=== PATIENT | female | born 1965 | race Two or more races ===

== ENCOUNTER → 2024-08-15 | Outpatient (CLI) | payer MEDICAID, SELFPAY ==
--- NOTE | 2024-08-15 09:45 | XR_ITS ---
Examination: Breast ultrasound, unilateral, left complete Date and time of exam: August 15, 2024 0958 hours INDICATIONS: Intermittent left breast pain one year, family history, mother ovarian cancer Mammogram 05/23/2024 12 mm focal asymmetry outer left breast CC view 7.5 cm from the nipple Technique: Real-time shine scale ultrasonographic imaging performed left breast including all 4 quadrants as well as nipple retroareolar and axillary region. Findings: 3:00 oval mass circumscribed 5 by 4 x 4 millimeter IMPRESSION: BI-RADS Category 3: Probably benign findings Recommend 1 additional 6 month left breast sonogram follow-up to document stability of 3:00 nodule described above
--- NOTE | 2024-08-15 10:30 | XR_ITS ---
Examination: Diagnostic digital mammography, unilateral, left Computer aided detection 3-D breast Tomosynthesis, unilateral Date and time of exam: August 15, 2024 1016 hours INDICATIONS: Mammogram May 23, 2024 12 mm focal asymmetry outer left breast CC view, 7.5 cm from the nipple Technique: Nonmagnified MLO, CC views of the left breast have been obtained, reconstructed from 3-D Tomosynthesis images. R2 computer aided detection program utilized for evaluation of suspicious masses and/or abnormal calcifications. 3-D Tomosynthesis images obtained. Findings: Scattered areas of fibroglandular density Breast biopsy marker upper outer left breast No suspicious masses noted on this study Impression: BI-RADS category 2: Benign findings Return to yearly follow-up mammography
== END | disposition home or self-care (01) ==
LOC: CDIM 09:30
PROVIDERS: PCP Nurse Practitioner Family; Referring Provider Nurse Practitioner Family; Visit Provider Nurse Practitioner Family
DX: R92.322 Mammographic fibroglandular density, left breast (principal); N63.25 Unspecified lump in the left breast, overlapping quadrants
CPT/HCPCS: 76641; 77061; 77065; G0279

== ENCOUNTER → 2024-11-22 | Outpatient (CLI) | payer MEDICAID, SELFPAY ==
--- NOTE | 2024-11-22 13:30 | XR_ITS ---
Examination: Breast ultrasound, unilateral, left complete Date and time of exam: November 22, 2024 1331 hrs. Indications: Left breast sonogram August 15, 2024. 3:00 nodule 4 mm Technique: Real-time shine scale ultrasonographic imaging performed left breast including all 4 quadrants as well as nipple retroareolar and axillary region. Findings: 3:00 oval mass circumscribed 5 x 4 mm Impression: BI-RADS Category 2: Benign findings
== END | disposition home or self-care (01) ==
PROVIDERS: PCP Nurse Practitioner Family; Referring Provider Nurse Practitioner Family; Visit Provider Nurse Practitioner Family
DX: N63.25 Unspecified lump in the left breast, overlapping quadrants (principal)
CPT/HCPCS: 76641